=== PATIENT | female | born 1965 | race Caucasian/White ===

== ENCOUNTER 2020-02-23 20:44 | Inpatient (IN) | payer MEDICAID, OTHER ==
[~2020-02-23] VITALS: Ht 160 cm; Wt 52.9 kg
[2020-02-23] MEDS ORDERED: NITROGLYCERIN 2% OINT 1GM PKG TD ONE ×2 (20:54→21:00)
[2020-02-23] MEDS ORDERED: ATORVASTATIN 20 MG TAB ONE (20:54)
[2020-02-23] MEDS ORDERED: HEPARIN SODIUM (PORCINE) 5000 UNITS/ML 1ML VIAL ONE ×2 (20:55→21:18)
[2020-02-23] MEDS ORDERED: ONDANSETRON HCL 4 MG/2 ML VIAL ONE (20:55)
[2020-02-23] MEDS ORDERED: HEPARIN DRIP/D5W 100UNITS/ML 250 ML IV ONE (20:55)
[2020-02-23] MEDS ORDERED: MORPHINE SULF INJ 2 MG/ML SYRINGE 1ML ONE (20:55)
[2020-02-23] MEDS ORDERED: HEPARIN SODIUM (PORCINE) 5000 UNITS/ML 1ML VIAL IV ONE (21:00)
[2020-02-23] MEDS ORDERED: ATORVASTATIN 20 MG TAB PO ONE (21:00)
[2020-02-23] MEDS ORDERED: ONDANSETRON HCL 4 MG/2 ML VIAL IV ONE (21:00)
[2020-02-23] MEDS ORDERED: HEPARIN DRIP/D5W 100UNITS/ML 250 ML IV SCH ×2 (21:00→21:15)
[2020-02-23] MEDS ORDERED: MORPHINE SULFATE 4 MG/ML SYR/VIAL IV ONE (21:00)
[2020-02-23] MEDS ORDERED: METOPROLOL TARTRATE 25 MG TAB ONE (21:03)
[2020-02-23] MEDS ORDERED: MORPHINE SULF INJ 2 MG/ML SYRINGE 1ML IV ONE ×2 (21:15→21:45)
[2020-02-23] MEDS ORDERED: ANGIOMAX 250 MG VIAL IV ONE (21:16)
[2020-02-23] MEDS ORDERED: SODIUM CHL 0.9% 50 ML ONE (21:17)
[2020-02-23] MEDS ORDERED: MIDAZOLAM HCL 1MG/1ML-2 ML VIAL ONE (21:17)
[2020-02-23] MEDS ORDERED: LIDOCAINE 2%HCL (LOCAL ANESTH.) INJ 20ML MDV ONE (21:17)
[2020-02-23] MEDS ORDERED: fentaNYL CITRATE 100 MCG/2 ML VL ONE (21:17)
[2020-02-23] MEDS ORDERED: IOHEXOL 350 MG/ML 100ML IJ ONE (21:17)
[2020-02-23] MEDS ORDERED: VERAPAMIL 2.5MG/ML INJ 2ML VIAL IV ONE (21:18)
[2020-02-23] MEDS ORDERED: CLOPIDOGREL BISULFATE 75 MG TAB ONE (21:27)
[2020-02-23] MEDS ORDERED: CLOPIDOGREL 300 MG TAB ONE (21:28)
[2020-02-23] MEDS ORDERED: CLOPIDOGREL BISULFATE 75 MG TAB PO ONE ×2 (21:30)
[2020-02-23 21:44] LABS: Basophils # (auto) 0 10 ^3/uL (0-0.2); Basophils % (auto) 0.6 % (0.0-2.0); Eosinophils # (auto) 0.3 10 ^3/uL (0-0.8); Eosinophils % (auto) 3.8 % (0.0-7.0); Hematocrit 46.4 % (36.0-46.0); Hemoglobin 15.7 g/dL (12.2-16.2); Lymphocytes # (auto) 2.7 10 ^3/uL (0.4-5.4); Lymphocytes % (auto) 37.2 % (10.0-50.0); Mean Corpuscular Hemoglobin 31.3 pg (28.0-32.0); Mean Corpuscular Hgb Conc. 33.8 g/dL (32.0-36.0); Mean Corpuscular Volume 92.7 fL (80.0-100.0); Monocytes # (auto) 0.8 10 ^3/uL (0-1.3); Monocytes % (auto) 11.4 % (0.0-12.0); Neutrophils # (auto) 3.4 10 ^3/uL (1.6-8.6); Nucleated Red Blood Cells % 0.2 %; Platelet Count (auto) 214 10^3/uL (140-450); Red Blood Cells 5.01 10^6/uL (4.0-5.20); White Blood Cell 7.2 10^3/uL (4.4-10.8)
[2020-02-23 21:55] LABS: Potassium 4.3 mmol/L (3.5-5.1)
[2020-02-23] MEDS ORDERED: diphenhdrAMINE HCL 50 MG/1 ML VL ONE (21:56)
[2020-02-23] MEDS ORDERED: ATROPINE SULF 1 MG/10ml SYR ONE (22:01)
[2020-02-23] MEDS ORDERED: EPINEPHrine HCL 1 MG/10 ML SYRG ONE (22:02)
[2020-02-23 22:06] LABS: Albumin 3.6 g/dL (3.4-5.0); BUN/Creatinine Ratio 21.3; Bilirubin, Total 0.5 mg/dL (0.2-1.0); Calcium 8.9 mg/dL (8.5-10.1); Total Protein 7.3 g/dL (6.4-8.2)
[2020-02-23 22:11] LABS: Partial Thromboplastin Time < 20.0 sec (23.0-31.2)
--- NOTE | 2020-02-23 22:40 | NUR ---
PT. TRANSFERRED FROM DOCTOR ASSISTANT TO ICU BED#106; PT. S/P RT. HEART CATH WITH INSERTION SITE TO RT. GROIN-SLIGHTLY EDEMATOUS WITH NO OOZING OR BRUISING AND WILL CONT. TO MONITOR; PT. C/O CHEST PAIN AND WILL MEDICATE.
[2020-02-23] MEDS ORDERED: NITROGLYCERIN 0.4 MG SL TAB SL PRN (22:45)
[2020-02-23] MEDS ORDERED: ONDANSETRON HCL 4 MG/2 ML VIAL IV PRN (22:45)
[2020-02-23] MEDS ORDERED: MORPHINE SULF INJ 2 MG/ML SYRINGE 1ML IV PRN (22:45)
[2020-02-23] MEDS ORDERED: ACETAMINOPHEN 325 MG TAB PO PRN ×2 (22:45→23:15)
[2020-02-23] MEDS ORDERED: SODIUM CHLORIDE 0.9% 1,000 ML IV SCH (22:45)
[2020-02-23] MEDS ORDERED: MORPHINE SULFATE 4 MG/ML SYR/VIAL IV PRN (22:45)
--- NOTE | 2020-02-23 22:50 | NUR ---
PT TRANSPORTED TO ICU VIA BED. PORTABLE MONITOR AND O2 WITHOUT INCIDENT. PRIMARY RN AT BEDSIDE. PLACED ON BEDSIDE MONITOR AND O2. DRSG TO RT WRIST AND RT FEMORAL AREA CHECKED. DRSGS REMAIN CDI. NO OOZING NO HEMATOMA.DENIES CHESP PAIN/DISCMFORT AT THIS TIME. PULSES REMAIN SAME. TRASNFER SERVICES TO PRIMARY RN JAZMIN.
[2020-02-23 23:00] VITALS: BP_SYST 184; BP_SYST 201; BP_DIAS 118; BP_DIAS 124
[2020-02-23] MEDS ORDERED: LORazepam 0.5 MG TAB PO PRN (23:00)
[2020-02-23] MEDS ORDERED: ACETAMINOPHEN 500 MG TAB PO PRN (23:00)
[2020-02-23] MEDS ORDERED: HYDROcodone-ACET 5/325MG TAB PO PRN (23:00)
[2020-02-23] MEDS ORDERED: hydrALAZINE HCL 20 MG/ML VL ONE (23:04)
[2020-02-23] MEDS ORDERED: CARV3.1240 PO (23:06)
[2020-02-23] MEDS ORDERED: NITR1SPR TL (23:06)
[2020-02-23] MEDS ORDERED: ASPI-231 PO (23:06)
[2020-02-23] MEDS ORDERED: ATOR20TA PO (23:06)
[2020-02-23] MEDS ORDERED: ENAL2.5T11 PO (23:06)
[2020-02-23] MEDS ORDERED: NITROGLYCERIN 0.4MG/DOSE SPRAY 4.9GM TL SCH (23:15)
[2020-02-24] VITALS (29 sets, daily range): BP systolic 92–147; BP diastolic 67–173
[2020-02-24] MEDS ORDERED: MORPHINE SULF INJ 2 MG/ML SYRINGE 1ML IV ONE (01:00)
[2020-02-24] MEDS ORDERED: hydrALAZINE HCL 20 MG/ML VL IV ONE (02:00)
[2020-02-24] MEDS ORDERED: METOPROLOL TARTRATE 1MG/1ML-5ML VIAL IV ONE (02:00)
[2020-02-24] MEDS: MORPHINE SULFATE 4 MG/ML SYR/VIAL IV PRN ×4 (02:38→20:25)
[2020-02-24] MEDS: MORPHINE SULF INJ 2 MG/ML SYRINGE 1ML IV PRN (04:24)
[2020-02-24 04:57] LABS: Basophils # (auto) 0 10 ^3/uL (0-0.2); Basophils % (auto) 0.4 % (0.0-2.0); Eosinophils # (auto) 0 10 ^3/uL (0-0.8); Eosinophils % (auto) 0.2 % (0.0-7.0); Hematocrit 42.3 % (36.0-46.0); Hemoglobin 14.2 g/dL (12.2-16.2); Lymphocytes # (auto) 1.2 10 ^3/uL (0.4-5.4); Lymphocytes % (auto) 16.7 % (10.0-50.0); Mean Corpuscular Hgb Conc. 33.6 g/dL (32.0-36.0); Mean Corpuscular Volume 92.1 fL (80.0-100.0); Monocytes # (auto) 0.6 10 ^3/uL (0-1.3); Monocytes % (auto) 8.3 % (0.0-12.0); Neutrophils # (auto) 5.5 10 ^3/uL (1.6-8.6); Neutrophils % (auto) 74.4 % (37.0-80.0); Nucleated Red Blood Cells % 0.1 %; Platelet Count (auto) 189 10^3/uL (140-450); Red Blood Cells 4.59 10^6/uL (4.0-5.20); White Blood Cell 7.4 10^3/uL (4.4-10.8)
[2020-02-24 05:08] LABS: INR 0.97 (0.9-1.15); Partial Thromboplastin Time 23.3 sec (23.0-31.2)
[2020-02-24 05:11] LABS: Albumin 3.4 g/dL (3.4-5.0); Calcium 8.8 mg/dL (8.5-10.1); Potassium 4.1 mmol/L (3.5-5.1)
[2020-02-24 05:17] LABS: Bilirubin, Total 0.4 mg/dL (0.2-1.0); Total Protein 6.8 g/dL (6.4-8.2)
--- NOTE | 2020-02-24 08:30 | NUR ---
NEW ORDER FOR PLAVIX 75 MG PO QDAILY AWARE NO ORDER THIS AM
--- NOTE | 2020-02-24 09:33 | NUR ---
DR LAU AT BEDSIDE, EXAMINED PATIENT AND NEW ORDER TO DOWNGRADE TO TELE OR SONG BUT TO CHECK WITH CARDIOLOGY PRIOR TO DOWNGRADE
[2020-02-24] MEDS ORDERED: ENALAPRIL MALEATE 2.5 MG TAB PO SCH (10:00)
[2020-02-24] MEDS ORDERED: ATORVASTATIN 20 MG TAB PO SCH (10:00)
[2020-02-24] MEDS: PANTOPRAZOLE 40 MG/10 ML VIAL INJ IV SCH (10:53)
[2020-02-24] MEDS: LISINOPRIL 10 MG TAB PO SCH (10:54)
[2020-02-24] MEDS: CARVEDILOL 3.125 MG TAB PO SCH ×2 (10:54→22:00)
[2020-02-24] MEDS: ASPirin-EC 81 mg tab PO SCH (10:54)
[2020-02-24] MEDS: CLOPIDOGREL BISULFATE 75 MG TAB PO SCH (10:55)
--- NOTE | 2020-02-24 11:34 | NUR ---
SPOKE WITH DR LAU, DR BAKER UA AND AWARE AVNI/ELANA HAS NOT CALLED BACK YET REGARDING DOWNGRADE OK TO DOWNGRADE TO TELE WITHOUT CARDIO CLEARANCE DUE TO CODE ON FLOOR. RN FAXED MED REC REQUEST TO [facility]
[2020-02-24] MEDS: NITROGLYCERIN 0.4 MG SL TAB SL PRN (12:18)
--- NOTE | 2020-02-24 12:20 | NUR ---
OK WITH PRINCESS TO TRANSFER TO ELANA MURCIA INLAYER AWARE HEPARIN GTT STILL ORDERED BUT NOT INFUSING, NEW ORDER TO DC
--- NOTE | 2020-02-24 12:30 | NUR ---
TRANSFERRED PATIENT TO ROOM 291B WITH ALL BELONGINGS AND IN STABLE CONDITION ON TELE MONITOR AND IN BED WITH PORTABLE 02, NTG GIVEN 0.4 MG SL ONCE PRIOR TO TRANSFERRING TO DUE CHEST PAIN C/O 08/04 WITH RELIEF-SEE EMAR. REPORT GIVEN TO KE BOND VIA PHONE BY VALENTÍN STEWARD
--- NOTE | 2020-02-24 12:45 | NUR ---
Received pt. from ICU; This RN did assessment; s1 and s2 noted clear lung sounds and BP 126/89 pulse 66.a Pt. states, " I have chest pain but nitro does not help me. I need morphine and ice chips. This RN let pt. know that morphine isn't due for one hour. This RN will continue to check on pt.
--- NOTE | 2020-02-24 13:50 | NUR ---
This RN gave pt. morphine and pt. immediately states" I am feeling better I think I can sleep now. This RN will continue to monitor pt. Q1 and PRN.
[2020-02-24] MEDS: ATORVASTATIN 20 MG TAB PO SCH (22:00)
[2020-02-25] VITALS (8 sets, daily range): BP systolic 81–153; BP diastolic 46–97
[2020-02-25] MEDS: MORPHINE SULFATE 4 MG/ML SYR/VIAL IV PRN (00:54)
[2020-02-25] MEDS: NITROGLYCERIN 0.4 MG SL TAB SL PRN (00:55)
[2020-02-25 01:50] LABS: Alcohol, Urine < 3.0 mg/dL (0-10); Amphetamine Screen, Urine NEGATIVE (NEGATIVE); Barbiturate Scree,Urine NEGATIVE (NEGATIVE); Benzodiazephine Screen, Urine POSITIVE (NEGATIVE); Cannabinoid Screen, Urine POSITIVE (NEGATIVE); Cocaine Screen, Urine NEGATIVE (NEGATIVE); Opiate Scree,Urine POSITIVE (NEGATIVE); Phencyclidine Screen, Urine NEGATIVE (NEGATIVE)
[2020-02-25 01:51] LABS: Urine Bacteria MANY /hpf (None Seen); Urine Blood Negative /uL (Negative); Urine Mucus FEW (None Seen); Urine Specific Gravity 1.024 (1.001-1.035); Urine WBC 135 /hpf (0 - 5)
--- NOTE | 2020-02-25 03:32 | NUR ---
Shift update Received pt in an elevated level of pain pointing at her thorax while giving a description. Due medication for pain administered. SBP noted lower than 100, beta abbi held. Able to collect pending u/a specimen & get processed.
[2020-02-25] MEDS: MORPHINE SULF INJ 2 MG/ML SYRINGE 1ML IV PRN ×2 (05:24→07:21)
--- NOTE | 2020-02-25 05:48 | NUR ---
Chest pain Patient c/o of 10/10 chest pain. EKG done, showed similar rhythms with previous readings. Spoke to hospitalist RAQUEL Dove ordered to monitor. Patient only want morphine iv and she expresses feeling relief from the pain right away. Patient asks for it every 4 hours on the clock and complains of 10/10 chest pain. Refuses nitroglycerin saying it doesn't relieve her pain. Explained to patient about dependency on narcotic and the way of dealing with pain when she goes home.
--- NOTE | 2020-02-25 07:40 | NUR ---
Opening Shift Note Assumed care of patient, awake and alert. No S/S of distress/SOB. However, pt reports pain 10/10. Pt. states, "Night nurse said I should go to ER." "I do not feel good" This RN will address pt's pain as prescribed by MD. Also, Instructed pt. to call for assistance as needed. Bed locked in lowest position, side rails up x2, call light within reach. Safety precautions in place. Will continue to monitor for changes Q1hr and PRN.
[2020-02-25] MEDS ORDERED: CEFTRIAXONE SODIUM 2 GM in D5W 5% 50 ML IV ONE (08:00)
--- NOTE | 2020-02-25 10:18 | NUR ---
PT. HAS EKG DONE DUE TO CHEST PAIN.
--- NOTE | 2020-02-25 10:19 | NUR ---
EKG Obtained 12lead EKG for chest pain. RONDA Elkins at bedside. Addendum: 02/25/20 at 1304 by GREG DENISE RN RN Rash on abdominal/chest area noted.
--- NOTE | 2020-02-25 10:22 | NUR ---
DR. LAU REVIEWED THE EKG.
--- NOTE | 2020-02-25 10:42 | NUR ---
notified Notified Dr. Cobian of patient status and request to be seen by Dr. Fernando. MD will see patient.
[2020-02-25] MEDS ORDERED: diphenhdrAMINE-ZINC ACETATE 1 APPLIC APPL TOP PRN (10:45)
[2020-02-25] MEDS ORDERED: ALPRAZolam 0.25 MG TAB PO ONE (10:45)
[2020-02-25] MEDS: ASPirin-EC 81 mg tab PO SCH (10:51)
[2020-02-25] MEDS: PANTOPRAZOLE 40 MG/10 ML VIAL INJ IV SCH (10:51)
[2020-02-25] MEDS: LISINOPRIL 10 MG TAB PO SCH (10:52)
[2020-02-25] MEDS: CARVEDILOL 3.125 MG TAB PO SCH ×2 (10:52→22:00)
[2020-02-25] MEDS: CLOPIDOGREL BISULFATE 75 MG TAB PO SCH (10:54)
--- NOTE | 2020-02-25 11:39 | NUR ---
Notified Dr. Fernando notified of EKG and physical assessment findings as well as patient complaint of anxiety. New orders received for Xanax 0.25mg for anxiety x1 and Benadryl oinment for rash. RONDA, Brittni, aware. Addendum: 02/25/20 at 1310 by GREG DENISE RN RN WRONG TIME: [id number]
--- NOTE | 2020-02-25 12:25 | NUR ---
at Bedside Dr. Cobian assessing patient at bedside. New orders received for Toradol 30mg IV pushx1 and obtain Echo. RNBrittni, notified and aware.
--- NOTE | 2020-02-25 12:27 | NUR ---
Notified Dr. Fernando aware of patient status and Dr. Mango carmona. RN, Brittni, notified and aware.
[2020-02-25] MEDS ORDERED: COLCHICINE 0.6 MG CAP PO ONE (13:00)
--- NOTE | 2020-02-25 13:04 | NUR ---
Lab Called lab, per home performance laborer, will send video production intern to obtain stat Troponin per Dr. Fernando orders.
--- NOTE | 2020-02-25 15:20 | NUR ---
THIS RN PAGED DR. LAU FOR CRITICAL TROPONIN OF 32.600. THIS RN WAITING TO HEAR BACK.
--- NOTE | 2020-02-25 16:00 | NUR ---
THIS RN CONTACTED DR. TREVINO AND DR. LAU WITH RESPECT TO THE PT. TROPONIN LEVEL 32.600. ORDERS ARE TO START A HEPARIN DRIP.
[2020-02-25] MEDS ORDERED: HEPARIN SODIUM (PORCINE) 5000 UNITS/ML 1ML VIAL IV ONE (16:15)
[2020-02-25] MEDS ORDERED: HEPARIN DRIP/D5W 100UNITS/ML 250 ML IV SCH (16:15)
--- NOTE | 2020-02-25 17:00 | NUR ---
LAB IN PT ROOM FOR PT/PTT DRAW BUT COULD NOT ACCESS VEIN. TURN SUPERVISOR STATED SHE WOULD CALL ANOTHER TECH. WILL FOLLOW UP.
--- NOTE | 2020-02-25 18:00 | NUR ---
FOLLOWED UP AGAIN WITH LAB FOR PT/PTT LAB DRAW. THEY STATED THEY WOULD SEND SOMEONE UP FROM ER.
[2020-02-25] MEDS ORDERED: KETOROLAC TROMETH 30 MG/ML 1ML VIAL IV ONE (19:00)
--- NOTE | 2020-02-25 19:22 | NUR ---
CALLED LAB SPOKE TO WILLI WHO KNEW ABOUT THE SITUATION, HOWEVER; SHE STATES "SHE IS SWAMPED RIGHT NOW" AND WILL COME UP SOON SHE CAN.
[2020-02-25] MEDS ORDERED: cefTRIAXone 1GM/50ML D5W 50 ML IV ONE ×2 (19:29→19:48)
--- NOTE | 2020-02-25 19:30 | NUR ---
Post endorsement to NOC Received pt on bed, pending blood draw for PTT check as to establish baseline for Heparin drip rate. Per report pt is hardstick and some issued going on with phlebo schedule.
--- NOTE | 2020-02-25 21:30 | NUR ---
Spoke with lab personnel, stated they will be sending someone to draw labs for pt
--- NOTE | 2020-02-25 21:45 | NUR ---
Heparin prepared at bedside. Noted BP low. Paged hospitalist
[2020-02-25] MEDS: ATORVASTATIN 20 MG TAB PO SCH (22:00)
--- NOTE | 2020-02-25 22:00 | NUR ---
Spoke to hospitalist on duty, reported series of low systolic pressure. Advised to follow hospital protocol. Beef Boner aware.
--- NOTE | 2020-02-25 22:45 | NUR ---
Noted blood has been drawn. Awaiting PTT result to get Heparin started
[2020-02-25 22:57] LABS: Basophils # (auto) 0.1 10 ^3/uL (0-0.2); Basophils % (auto) 0.9 % (0.0-2.0); Eosinophils # (auto) 0 10 ^3/uL (0-0.8); Eosinophils % (auto) 0.4 % (0.0-7.0); Hematocrit 39.7 % (36.0-46.0); Hemoglobin 13.4 g/dL (12.2-16.2); Lymphocytes # (auto) 1.6 10 ^3/uL (0.4-5.4); Lymphocytes % (auto) 18.4 % (10.0-50.0); Mean Corpuscular Hemoglobin 31.1 pg (28.0-32.0); Mean Corpuscular Hgb Conc. 33.9 g/dL (32.0-36.0); Mean Corpuscular Volume 91.8 fL (80.0-100.0); Monocytes # (auto) 1.3 10 ^3/uL (0-1.3); Monocytes % (auto) 14.3 % (0.0-12.0); Neutrophils # (auto) 5.8 10 ^3/uL (1.6-8.6); Platelet Count (auto) 172 10^3/uL (140-450); Red Blood Cells 4.32 10^6/uL (4.0-5.20); Red Cell Distribution Width 13.2 % (11.8-14.3); White Blood Cell 8.8 10^3/uL (4.4-10.8)
--- NOTE | 2020-02-25 23:00 | NUR ---
Dr Fernando called and stated that heparin gtt hasn't been started and needs to be started. Labs were drawn at [address] and waiting for results. Dr[address] Fernando informed. Stated when results come back and ok, just start drip and do not give bolus.
[2020-02-25 23:12] LABS: INR 1.01 (0.9-1.15); Partial Thromboplastin Time 26.2 sec (23.0-31.2)
[2020-02-26] VITALS (10 sets, daily range): BP systolic 73–105; BP diastolic 45–64
--- NOTE | 2020-02-26 00:05 | NUR ---
Primary RN stated that BP is low. Systolic in the 70's. Gave 250 NS bolus. Stephen TAYLOR aware.
--- NOTE | 2020-02-26 00:25 | NUR ---
Heparin gtt started by primary RN
--- NOTE | 2020-02-26 00:36 | NUR ---
Called Stephen TAYLOR regarding low BP and no IV fluids currently. Order received for NS @ 60 ml/hr
--- NOTE | 2020-02-26 00:40 | NUR ---
Patient running on 300 u/hr of Heparin (58727 units/250 mL) per pharmacy protocol. Next PTT draw scheduled at 0440 along with trops check. Fluids of ns ant 60 ml/hr per hospitalist order. Comfortable on bed, denied chest pain at this time. On BP monitoring. Bed salvador offered frequently when awake. Alert and oriented, requested snack, provided. On 02 at 2 LPM for comfort. Bilateral lower extremities elevated. Frequent visual check in progress.
--- NOTE | 2020-02-26 02:03 | NUR ---
Patient on bedpan, and 02 with no s/sx of shortness of breath. Consistently saturating at high 90s and would go to 100's. Repositioned as necessary and per comfort.
--- NOTE | 2020-02-26 04:20 | NUR ---
Deviated jaw Noted patient as she was talking that chin sways to the left slightly of her face. Assessed b/l arms noted left hand has weaker mass spectrometry manager than the other. Notified Charge and Industrial Gas Servicer Helper came to the room. BS 104 mg/dL, EKG still showing acute TX just like the previous. 250 mL ns bolus given. Cont observing pt.
--- NOTE | 2020-02-26 04:25 | NUR ---
Charge nurse and myself evaluated patient and determined that there was no deviation and bilateral hand and arm reflexes and strength were equal. Patient's BP remains in the 80's systolic and patient is A&O x 4, asymtomatic with zero pain. Patient currently on Heparin gtt per protocol and NS@60 ml/hr. Nurse instructed to monitor patient and inform charge nurse if any further concerns.
--- NOTE | 2020-02-26 05:09 | NUR ---
Patient remains alert and oriented, saturating 100% on 2liters
[2020-02-26 06:24] LABS: Basophils # (auto) 0 10 ^3/uL (0-0.2); Basophils % (auto) 0.5 % (0.0-2.0); Eosinophils # (auto) 0 10 ^3/uL (0-0.8); Eosinophils % (auto) 0.7 % (0.0-7.0); Hematocrit 39.6 % (36.0-46.0); Hemoglobin 13.2 g/dL (12.2-16.2); Lymphocytes # (auto) 1.2 10 ^3/uL (0.4-5.4); Mean Corpuscular Hemoglobin 30.7 pg (28.0-32.0); Mean Corpuscular Hgb Conc. 33.3 g/dL (32.0-36.0); Mean Corpuscular Volume 92.2 fL (80.0-100.0); Monocytes # (auto) 1.1 10 ^3/uL (0-1.3); Monocytes % (auto) 14.7 % (0.0-12.0); Neutrophils # (auto) 4.8 10 ^3/uL (1.6-8.6); Neutrophils % (auto) 67.1 % (37.0-80.0); Platelet Count (auto) 138 10^3/uL (140-450); Red Cell Distribution Width 13.2 % (11.8-14.3); White Blood Cell 7.2 10^3/uL (4.4-10.8)
[2020-02-26 06:39] LABS: INR 1.02 (0.9-1.15); Partial Thromboplastin Time 27.1 sec (23.0-31.2)
[2020-02-26 06:41] LABS: Calcium 8.4 mg/dL (8.5-10.1); Potassium 3.7 mmol/L (3.5-5.1)
[2020-02-26 06:46] LABS: BUN/Creatinine Ratio 19.4
--- NOTE | 2020-02-26 07:34 | NUR ---
Opening Shift Note Assumed care of patient, awake and alert. No S/S of distress/SOB or pain. Instructed on POC and to call for assist PRN, will continue to monitor for changes Q1hr and PRN.
--- NOTE | 2020-02-26 07:35 | NUR ---
NIGHT NURSE GAVE ME REPORT AND TOGETHER WE WENT TO CHECK PT. AND PT'S HEPARIN DRIP. PT. WAS STARTED AT 3ML WHICH WAS A MEDICATION ERROR BASED ON HEPARIN PROTOCOL AND SCALE. PT. APTT 27.1 CALLED FOR A BOLUS AND INCREASE OF 3 ML WHICH IS WHY WE DISCOVERED THE MEDICATION ERROR. WILL CALL CHARGE NURSE TO ADVISE.
--- NOTE | 2020-02-26 07:36 | NUR ---
SPOKE TO CHARGE NURSE JOAQUÍN REGARDING HEPARIN DRIP MEDICATION ERROR. CHARGE NURSE TOLD ME TO CALL PHARMACY AND FILL OUT A INCIDENT REPORT ON THE NIGHT TIME NURSE.
--- NOTE | 2020-02-26 07:37 | NUR ---
THIS RN SPOKE TO ANITRA (PHARMACIST) REGARDING THE HEPARIN DRIP MEDICATION ISSUE. ANITRA SAID TO INCREASE THE ML'S TO A TOTAL OF 6 ML AND SHE WOULD HAVE THE LAB REDRAW THE PT'S APTT IN SIX HOURS FROM NOW.
[2020-02-26] MEDS: SODIUM CHLORIDE 0.9% 1,000 ML IV SCH (08:00)
--- NOTE | 2020-02-26 08:03 | NUR ---
Care endorsed to RONDA Elkins. Latest BP 93/64 mmHg. Patient alert and oriented 100 saturation, awaiting breakfast.
--- NOTE | 2020-02-26 08:25 | NUR ---
THIS RN COMMUNICATED WITH DR. TREVINO ABOUT THE HEPARIN DRIP MEDICATION ERROR AND BLOOD PRESSURE OF 77/57, AND IN PAIN 4 OUT OF 10, THIS PT. IS ASYMPTOMATIC. DR. TREVINO PRESCRIBED TORADOL 30 IV Q6 PRN.
[2020-02-26] MEDS: CLOPIDOGREL BISULFATE 75 MG TAB PO SCH (09:10)
[2020-02-26] MEDS: COLCHICINE 0.6 MG CAP PO SCH (09:10)
[2020-02-26] MEDS: ASPirin-EC 81 mg tab PO SCH (09:10)
[2020-02-26] MEDS: cefTRIAXone 1GM/50ML D5W 50 ML IV SCH (09:10)
[2020-02-26] MEDS: PANTOPRAZOLE 40 MG/10 ML VIAL INJ IV SCH (09:10)
[2020-02-26] MEDS: KETOROLAC TROMETH 30 MG/ML 1ML VIAL IV PRN ×2 (09:16→23:07)
[2020-02-26] MEDS: LISINOPRIL 10 MG TAB PO SCH (10:00)
[2020-02-26] MEDS: CARVEDILOL 3.125 MG TAB PO SCH ×2 (10:00→22:00)
--- NOTE | 2020-02-26 13:56 | NUR ---
THIS RN JUST CALLED LAB ABOUT DRAWING PT'S APTT LEVEL DUE TO HEPARIN DRIP RUNNING.
[2020-02-26 14:26] LABS: INR 1.02 (0.9-1.15); Partial Thromboplastin Time 35.6 sec (23.0-31.2)
--- NOTE | 2020-02-26 19:35 | NUR ---
Opening Shift Note Assumed care of patient, awake and alert X 4. No S/S of distress/SOB or pain. IV to right jugular and left hand intact and patent. Tele box matches pt all leads are in place. Bed lowered and locked side rails up x 2. Call light and bedside table are within reach. Instructed on POC and to call for assist PRN, will continue to monitor for changes Q1hr and PRN.
--- NOTE | 2020-02-26 21:12 | NUR ---
paging hospitalist Calling in regards to low blood pressure of 77/45; HR 93, RR 16, O2 SAT 100%
[2020-02-26 21:29] LABS: INR 1.03 (0.9-1.15); Partial Thromboplastin Time 44.2 sec (23.0-31.2)
--- NOTE | 2020-02-26 21:43 | NUR ---
Hospitalist returned page Received order for 500 NS 0.9% bolus and if patient does not respond transfer to SONG
[2020-02-26] MEDS ORDERED: SODIUM CHLORIDE 0.9% 500 ML IV ONE (22:00)
[2020-02-26] MEDS: ATORVASTATIN 20 MG TAB PO SCH (23:06)
--- NOTE | 2020-02-26 23:15 | NUR ---
Received APTT results 44.2 At start of shift heparin drip rate was 8mls/hr, per protocol increased rate by 2 mls for total of 10 mls/hr
--- NOTE | 2020-02-27 00:26 | NUR ---
did order for aptt to done at 0243 which is 6 hrs after last aptt for heparin drip
[2020-02-27] MEDS: SODIUM CHLORIDE 0.9% 1,000 ML IV SCH ×2 (00:40)
[2020-02-27 05:00] VITALS: BP 108/74
--- NOTE | 2020-02-27 05:00 | NUR ---
Patient has question about Left heart cath consents unsigned
[2020-02-27 05:07] LABS: INR 1.02 (0.9-1.15); Partial Thromboplastin Time 39.6 sec (23.0-31.2)
--- NOTE | 2020-02-27 05:26 | NUR ---
Paged Dr. Cobian to confirm heparin drip continuation or hold
--- NOTE | 2020-02-27 05:30 | NUR ---
Received APTT results 39.6 followed protocol
--- NOTE | 2020-02-27 06:00 | NUR ---
Dr Cobian advised stop heparin drip
--- NOTE | 2020-02-27 07:30 | NUR ---
Opening Shift Note Assumed care of patient, awake and alert. No S/S of distress/SOB. Patient c/o pain 5/10, followed pain medication ordered. Instructed on POC and to call for assist PRN, will continue to monitor for changes Q1hr and PRN. Bed is locked and in lowest position. Call light within reach.
[2020-02-27] MEDS: cefTRIAXone 1GM/50ML D5W 50 ML IV SCH (08:31)
[2020-02-27] MEDS: KETOROLAC TROMETH 30 MG/ML 1ML VIAL IV PRN ×2 (08:31→23:11)
[2020-02-27 08:53] LABS: INR 0.99 (0.9-1.15); Partial Thromboplastin Time 25.2 sec (23.0-31.2)
[2020-02-27 09:00] VITALS: BP 109/81
[2020-02-27] MEDS: LISINOPRIL 10 MG TAB PO SCH (10:00)
[2020-02-27] MEDS: COLCHICINE 0.6 MG CAP PO SCH (10:00)
[2020-02-27] MEDS: CARVEDILOL 3.125 MG TAB PO SCH ×2 (10:00→22:00)
[2020-02-27] MEDS: PANTOPRAZOLE 40 MG/10 ML VIAL INJ IV SCH (10:16)
[2020-02-27] MEDS: CLOPIDOGREL BISULFATE 75 MG TAB PO SCH (10:16)
[2020-02-27] MEDS: ASPirin-EC 81 mg tab PO SCH (10:17)
--- NOTE | 2020-02-27 10:18 | NUR ---
MEDICATIONS HELD PATIENT LISINOPRIL 10 MG AND CARVEDILOL 3.125 MG HELD DUE TO DECREASED BLOOD PRESSURE. PATIENT WAS GIVEN 500 ML BOLUS FOR DECREASED BLOOD PRESSURE ON 02/26/20. DR. LAU NOTIFIED OF MEDICATION HELD. WILL CONTINUE TO MONITOR PATIENT. PATIENT REFUSED COLCHICINE 0.6 MG DUE TO PATIENT NOT HAVING HISTORY OF GOUT. WILL NOTIFY MD OF MEDICATION REFUSAL.
--- NOTE | 2020-02-27 11:51 | NUR ---
assessment Patient is a 54 year old female who is alert and oriented. Patients cognitive abilities are intact. Prior to admission patient lived home with sig other of 28 years and functioned independently. Patient informed me she is able to care for her own ADLs. Per patient she will return home to her prior living arrangements post discharge and family will transport her home. Patient has no need for DME. Patient informed me she was having chest pain and called 911. I informed patient I will continue to monitor and follow up as appropriate for any post discharge needs. Patients PCP is Dr Corley. Patient has no safety issues regarding returning home on discharge. I informed patient she has a right to speak to a oncology social work regarding all care. I informed patient she has a right to participate in any and all discharge planning. Patient does not have a POA and advanced directive. I have offered patient information on POA and advanced directives. I informed the patient the advantages and benefits of having an Advanced Directive. Patient verbalized understanding and agreed to discharge plan. Addendum: 02/27/20 at 1154 by Sybil ENCARNACION Amended: Links added.
--- NOTE | 2020-02-27 12:40 | NUR ---
PATIENT TRANSPORTED VIA GURNEY TO FASHION COORDINATOR PROCEDURE WITH DR. TREVINO. WILL AWAIT PATIENT RETURN.
[2020-02-27 12:49] VITALS: BP 113/78
[2020-02-27] MEDS ORDERED: ANGIOMAX 250 MG VIAL IV ONE (13:10)
[2020-02-27] MEDS ORDERED: MIDAZOLAM HCL 1MG/1ML-2 ML VIAL ONE (13:10)
[2020-02-27] MEDS ORDERED: fentaNYL CITRATE 100 MCG/2 ML VL ONE (13:10)
[2020-02-27] MEDS ORDERED: LIDOCAINE 2%HCL (LOCAL ANESTH.) INJ 20ML MDV ONE (13:10)
[2020-02-27] MEDS ORDERED: SODIUM CHL 0.9% 50 ML ONE (13:10)
[2020-02-27] MEDS ORDERED: IOHEXOL 350 MG/ML 100ML IJ ONE ×2 (13:27→13:51)
--- NOTE | 2020-02-27 13:53 | NUR ---
Nutrition Assessment Notes Please refer to link for full assessment notes. Est Energy needs: 7237-9443 kcals (25-30 kcal/kgBW) Est Protein needs: 42-53 gms/day (0.8-1.0 gm/kgBW) Will continue to monitor and reassess prn. Addendum: 02/27/20 at [address] Amended: Links added.
--- NOTE | 2020-02-27 14:11 | NUR ---
Patient brought to recovery via bed, report received from RONDA Sprague and RONDA Hogan. Patient is AO x 4, NAD noted. Left groin site is benign, no s/s of bleeding or hematoma formation. Positive circulation, movement and sensation noted to BLE. Patient verbalized understanding to post-procedure care and flat time.
--- NOTE | 2020-02-27 14:25 | NUR ---
Report given to RONDA Waldron.
--- NOTE | 2020-02-27 14:26 | NUR ---
Patient is awake in bed. Denies pain at this time. NAD noted. Left groin site remains unchanged. VS WNL of baseline.
--- NOTE | 2020-02-27 14:27 | NUR ---
REPORT RECEIVED REGARDING PATIENT POST CATH PROCEDURE WITH DR. TREVINO. PATIENT HAD NO STENT PLACEMENT DUE TO RCA OCCLUDED AND UNABLE TO INTERVENE. LEFT HEART CATH ACCESS THROUGH GROIN. PATIENT IS ALERT AND ORIENTED, VS BP 114/80, R 13, HR 85, SPO2 100% AT 2L NC. WILL AWAIT PATIENT RETURN. PATIENT WILL BE ABLE TO SIT UP AT 1610. WILL CONTINUE TO MONITOR PATIENT.
--- NOTE | 2020-02-27 14:38 | NUR ---
Patient taken to to telemetry unit via bed, cardiac nurse specialist in place. No s/s of distress noted upon departure. VSS. Primary RNKeri present at bedside to witness left groin site benign, no s/s of bleeding or hematoma formation. Bed set in lowest locked position with side rails up x 2, call light is within reach and bed alarm set on for safety. Care endorsed to RONDA Saavedra.
--- NOTE | 2020-02-27 16:21 | NUR ---
PATIENT SAT UP IN BED WITH NO SIGNS OF MAJOR BLEEDING TO LEFT GROIN. POST WATER AND FIRE TECHNICIAN ORDERS FOLLOWED. PATIENT WILL BE CONTINUED TO BE MONITORED.
[2020-02-27 16:59] VITALS: BP 117/78
[2020-02-27 22:09] VITALS: BP 99/66
[2020-02-27] MEDS: ATORVASTATIN 20 MG TAB PO SCH (22:48)
[2020-02-28 05:00] VITALS: BP 109/69
[2020-02-28 09:00] VITALS: BP 108/69
[2020-02-28] MEDS: CARVEDILOL 3.125 MG TAB PO SCH (10:52)
[2020-02-28] MEDS: cefTRIAXone 1GM/50ML D5W 50 ML IV SCH (10:52)
[2020-02-28] MEDS: SODIUM CHLORIDE 0.9% 1,000 ML IV SCH (10:52)
[2020-02-28] MEDS: PANTOPRAZOLE 40 MG/10 ML VIAL INJ IV SCH (10:53)
[2020-02-28] MEDS: CLOPIDOGREL BISULFATE 75 MG TAB PO SCH (10:53)
[2020-02-28] MEDS: COLCHICINE 0.6 MG CAP PO SCH (10:53)
[2020-02-28] MEDS: LISINOPRIL 10 MG TAB PO SCH (10:53)
[2020-02-28] MEDS: ASPirin-EC 81 mg tab PO SCH (10:53)
[2020-02-28] MEDS ORDERED: CLOP75TA28 PO (12:22)
[2020-02-28] MEDS ORDERED: COLC0.6T56 PO (12:22)
[2020-02-28] MEDS ORDERED: ASPI-231 PO (12:22)
[2020-02-28] MEDS ORDERED: ENAL2.5T11 PO (12:22)
[2020-02-28] MEDS ORDERED: CARV3.1240 PO (12:22)
[2020-02-28 13:00] VITALS: BP 108/79
[2020-02-28] MEDS: KETOROLAC TROMETH 30 MG/ML 1ML VIAL IV PRN (15:16)
--- NOTE | 2020-02-28 17:04 | NUR ---
Discharge instructions given as ordered to patient . The discharge forms included education on fall prevention , on discharge diagnosis, cardiac diet, cardiac rehab and every test and procedure patient had during stay. Encourage patient to follow up with Dr.Molly Colmenares on 03/09/20 appointment scheduled for patient. Patient needs to follow up with in order to get a referral to the environmental air specialist Dr.George Covington. Patient's insurance needs referral to environmental air specialist in order to cover visit.Patient verbalized understanding. All questions and concerns addressed. Patient verbalized understanding of all discharge instructions. Medication reconciliation form completed and copy given to patient. Prescriptions has been called to [facility] pharmacy , patient picked up her medications at the [id number] pharmacy when leaving. IV removed with catheter intact, pressure dressing applied. Telemetry unit returned to ICU. Patient taken to vehicle via wheelchair with all personal belongings, accompanied by staff and family member. No distress noted at time of departure.
== END 2020-02-28 18:05 | disposition home or self-care (01) | DRG 174 ==
LOC: EDBD 20:44 → ER 20:44 → ICU WEST 20:45 → TELE-WESTW 02-24 12:45
PROVIDERS: ADMIT Nurse Practitioner Family; ATTEND Internal Medicine
PROC: B2111ZZ Fluoroscopy of Multiple Coronary Arteries using Low Osmolar Contrast (ICD-10-PCS; principal; 2020-02-23)
PROC: 4A023N7 Measurement of Cardiac Sampling and Pressure, Left Heart, Percutaneous Approach (ICD-10-PCS; 2020-02-23)
PROC: B2151ZZ Fluoroscopy of Left Heart using Low Osmolar Contrast (ICD-10-PCS; 2020-02-23)
PROC: 02703EZ Dilation of Coronary Artery, One Artery with Two Intraluminal Devices, Percutaneous Approach (ICD-10-PCS; 2020-02-23)
PROC: B2111ZZ Fluoroscopy of Multiple Coronary Arteries using Low Osmolar Contrast (ICD-10-PCS; 2020-02-27)
DX: I21.19 ST elevation (STEMI) myocardial infarction involving other coronary artery of inferior wall (principal); I50.22 Chronic systolic (congestive) heart failure; I24.1 Dressler's syndrome; I25.10 Atherosclerotic heart disease of native coronary artery without angina pectoris; F17.210 Nicotine dependence, cigarettes, uncomplicated; F12.90 Cannabis use, unspecified, uncomplicated; I11.0 Hypertensive heart disease with heart failure; I70.0 Atherosclerosis of aorta; Z95.5 Presence of coronary angioplasty implant and graft; Z88.5 Allergy status to narcotic agent; Z79.899 Other long term (current) drug therapy; Z79.82 Long term (current) use of aspirin
CPT/HCPCS: 36415; 71045; 80048; 80053; 80061; 80307; 81001; 82962; 83036; 83735; 83880; 84443; 84484; 85025; 85379; 85610; 85730; 86850; 86900; 86901; 87081; 92950; 93005; 93306; 93458; 96365; 96375; 96376; 99152; 99153; C1874; C1887; C9113; G0378; J0696; J1885; J2250; J2405; J7060

== ENCOUNTER 2020-08-03 08:54 | Day surgery (SDC) | payer MEDICAID ==
[~2020-08-03] VITALS: Ht 152.4 cm; Wt 59.0 kg
[~2020-08-03 08:54] MED LIST: ASPI-231 PO; ATOR20TA50 PO; CARV3.1240 PO; CLOP75TA28 PO; ENAL2.5T11 PO
[2020-08-03] MEDS ORDERED: IOHEXOL 350 MG/ML 100ML IJ ONE (09:10)
[2020-08-03] MEDS ORDERED: LIDOCAINE 2%HCL (LOCAL ANESTH.) INJ 20ML MDV ONE ×2 (09:11→10:23)
[2020-08-03] MEDS ORDERED: IODIXANOL 320MG/ML 100ML BTL IV ONE ×2 (09:51→11:13)
[2020-08-03] MEDS ORDERED: ANGIOMAX 250 MG VIAL IV ONE (09:51)
[2020-08-03] MEDS ORDERED: MIDAZOLAM HCL 1MG/1ML-2 ML VIAL ONE (09:52)
[2020-08-03] MEDS ORDERED: fentaNYL CITRATE 100 MCG/2 ML VL ONE (09:52)
[2020-08-03] MEDS ORDERED: SODIUM CHL 0.9% 50 ML ONE (09:53)
== END 2020-08-03 15:07 | disposition home or self-care (01) ==
LOC: CATH 08:54
PROVIDERS: ATTEND Internal Medicine Cardiovascular Disease
DX: R06.02 Shortness of breath (principal); I25.118 Atherosclerotic heart disease of native coronary artery with other forms of angina pectoris; E78.5 Hyperlipidemia, unspecified; I10 Essential (primary) hypertension; I25.2 Old myocardial infarction; Z79.82 Long term (current) use of aspirin; Z98.890 Other specified postprocedural states; Z79.899 Other long term (current) drug therapy; Z87.891 Personal history of nicotine dependence; Z88.5 Allergy status to narcotic agent; Z20.822 Contact with and (suspected) exposure to COVID-19
CPT/HCPCS: 93460; C1751; C1760; C1769; C1887; C1894; C9600; J0583; J1644; J2250; J3010; J7030; Q9967; U0003; 99152; 99153

== ENCOUNTER 2021-01-21 09:44 | Inpatient (IN) | payer MEDICAID, OTHER ==
[~2021-01-21] VITALS: Ht 152.4 cm; Wt 64.0 kg
[~2021-01-21 09:44] MED LIST changes: -ASPI-231 PO; +ASPI1TAB20 PO
[2021-01-21] MEDS ORDERED: SODIUM CHLORIDE 0.9% 1,000 ML IV ONE (10:00)
[2021-01-21] MEDS ORDERED: MORPHINE SULFATE 4 MG/ML SYR/VIAL IV ONE (10:00)
[2021-01-21] MEDS ORDERED: ONDANSETRON HCL 4 MG/2 ML VIAL IV ONE (10:00)
[2021-01-21 10:19] LABS: Basophils # (auto) 0.1 10 ^3/uL (0-0.2); Basophils % (auto) 1.2 % (0.0-2.0); Eosinophils # (auto) 0.3 10 ^3/uL (0-0.8); Eosinophils % (auto) 4.5 % (0.0-7.0); Hematocrit 40.7 % (36.0-46.0); Hemoglobin 13.4 g/dL (12.2-16.2); Lymphocytes # (auto) 1.4 10 ^3/uL (0.4-5.4); Lymphocytes % (auto) 23.7 % (10.0-50.0); Mean Corpuscular Hemoglobin 30.7 pg (28.0-32.0); Mean Corpuscular Hgb Conc. 32.9 g/dL (32.0-36.0); Mean Corpuscular Volume 93.3 fL (80.0-100.0); Monocytes # (auto) 0.2 10 ^3/uL (0-1.3); Neutrophils # (auto) 3.9 10 ^3/uL (1.6-8.6); Neutrophils % (auto) 67.6 % (37.0-80.0); Nucleated Red Blood Cells % 0.1 %; Red Blood Cells 4.37 10^6/uL (4.0-5.20); Red Cell Distribution Width 13.3 % (11.8-14.3); White Blood Cell 5.7 10^3/uL (4.4-10.8)
[2021-01-21] MEDS ORDERED: KETOROLAC TROMETH 30 MG/ML 1ML VIAL IV ONE (10:30)
[2021-01-21 10:33] LABS: INR 0.99 (0.9-1.15); Partial Thromboplastin Time 24.9 sec (23.6-33.0)
[2021-01-21 10:38] LABS: Albumin 3.5 g/dL (3.4-5.0); Anion Gap 7 (5-15); Blood Urea Nitrogen 14 mg/dL (7-18); Calcium 9.2 mg/dL (8.5-10.1); Carbon Dioxide 23 mmol/L (21-32); Chloride 112 mmol/L (98-107); Glucose 104 mg/dL (74-106); Lipase 166 U/L (73-393); Potassium 3.7 mmol/L (3.5-5.1); Sodium 142 mmol/L (136-145)
[2021-01-21 10:40] LABS: Albumin 3.5 g/dL (3.4-5.0); Anion Gap 6 (5-15); Blood Urea Nitrogen 14 mg/dL (7-18); Calcium 9.1 mg/dL (8.5-10.1); Carbon Dioxide 23 mmol/L (21-32); Chloride 112 mmol/L (98-107); Glucose 106 mg/dL (74-106); Magnesium 2.1 mg/dL (1.6-2.6); Potassium 3.7 mmol/L (3.5-5.1); Sodium 141 mmol/L (136-145)
[2021-01-21 10:45] LABS: Alanine Aminotransferase 25 U/L (13-56); Alkaline Phosphatase 76 U/L (45-117); Aspartate Aminotransferase 18 U/L (15-37); BUN/Creatinine Ratio 12.7; Bilirubin, Total 0.7 mg/dL (0.2-1.0); GFR African American 66 mL/min; GFR Non-African American 54 mL/min; Total Protein 7.1 g/dL (6.4-8.2)
[2021-01-21 10:47] LABS: Alanine Aminotransferase 26 U/L (13-56); Alkaline Phosphatase 80 U/L (45-117); Aspartate Aminotransferase 19 U/L (15-37); BUN/Creatinine Ratio 12.2; Bilirubin, Total 0.7 mg/dL (0.2-1.0); GFR African American 63 mL/min; GFR Non-African American 52 mL/min
[2021-01-21] MEDS ORDERED: TAMSULOSIN HYDROCHLORIDE 0.4 MG CAP PO ONE (11:15)
[2021-01-21] MEDS ORDERED: FUROSEMIDE 40 MG/4 ML VIAL IV ONE (11:15)
[2021-01-21 12:03] LABS: Urine Bacteria FEW /hpf (None Seen); Urine Blood 1+ /uL (Negative); Urine Specific Gravity 1.013 (1.001-1.035); Urine WBC 271 /hpf (0 - 5); Urine WBC Clumps PRESENT /hpf (None Seen)
[2021-01-21 12:04] LABS: Urine Hyaline Cast FEW /lpf (0 - 2); Urine Mucus FEW (None Seen)
[2021-01-21] MEDS ORDERED: cefTRIAXone 1GM/50ML D5W 50 ML IV ONE (12:15)
[2021-01-21] MEDS ORDERED: NITROGLYCERIN 0.4 MG SL TAB SL PRN (14:45)
[2021-01-21] MEDS: SODIUM CHLORIDE 0.9% 1,000 ML IV SCH (14:45)
[2021-01-21] MEDS ORDERED: ACETAMINOPHEN 500 MG TAB PO PRN (14:45)
[2021-01-21] MEDS ORDERED: MORPHINE SULFATE INJECTION 2 MG/ML SYRG IV PRN (14:45)
[2021-01-21] MEDS: MORPHINE SULFATE INJECTION 2 MG/ML SYRG IV PRN (18:06)
[2021-01-21] MEDS: ONDANSETRON HCL 4 MG/2 ML VIAL IV PRN (18:06)
[2021-01-21] MEDS: ATORVASTATIN 20 MG TAB PO SCH (23:00)
[2021-01-21] MEDS: CARVEDILOL 3.125 MG TAB PO SCH (23:00)
[2021-01-22] MEDS: SODIUM CHLORIDE 0.9% 1,000 ML IV SCH ×3 (02:13→12:00)
[2021-01-22] MEDS: MORPHINE SULFATE INJECTION 2 MG/ML SYRG IV PRN (02:21)
[2021-01-22 03:18] VITALS: BP 101/63
[2021-01-22] MEDS ORDERED: NITR0.4S29 SL (03:52)
[2021-01-22 05:27] VITALS: BP 95/58
[2021-01-22 06:03] LABS: Basophils # (auto) 0 10 ^3/uL (0-0.2); Basophils % (auto) 0.2 % (0.0-2.0); Eosinophils # (auto) 0 10 ^3/uL (0-0.8); Eosinophils % (auto) 0.3 % (0.0-7.0); Hematocrit 36.1 % (36.0-46.0); Hemoglobin 12.4 g/dL (12.2-16.2); Lymphocytes # (auto) 0.4 10 ^3/uL (0.4-5.4); Lymphocytes % (auto) 4.9 % (10.0-50.0); Mean Corpuscular Hemoglobin 31.7 pg (28.0-32.0); Mean Corpuscular Hgb Conc. 34.3 g/dL (32.0-36.0); Mean Corpuscular Volume 92.6 fL (80.0-100.0); Monocytes # (auto) 0.6 10 ^3/uL (0-1.3); Monocytes % (auto) 7.9 % (0.0-12.0); Neutrophils # (auto) 6.8 10 ^3/uL (1.6-8.6); Neutrophils % (auto) 86.7 % (37.0-80.0); Red Cell Distribution Width 12.8 % (11.8-14.3); White Blood Cell 7.8 10^3/uL (4.4-10.8)
[2021-01-22 06:15] LABS: Calcium 8.1 mg/dL (8.5-10.1); Potassium 3.3 mmol/L (3.5-5.1)
[2021-01-22 06:17] LABS: BUN/Creatinine Ratio 14.3
[2021-01-22 09:00] VITALS: BP 95/67
[2021-01-22] MEDS: ENALAPRIL MALEATE 2.5 MG TAB PO SCH (10:00)
[2021-01-22] MEDS: cefTRIAXone 1GM/50ML D5W 50 ML IV SCH (10:41)
[2021-01-22] MEDS: ASPirin-EC 81 mg tab PO SCH (10:41)
[2021-01-22] MEDS: CLOPIDOGREL BISULFATE 75 MG TAB PO SCH (10:41)
[2021-01-22] MEDS: CARVEDILOL 3.125 MG TAB PO SCH ×2 (10:53→22:00)
[2021-01-22] MEDS: HYDROcodone-ACET 5/325MG TAB PO PRN ×2 (11:05→20:29)
[2021-01-22] MEDS ORDERED: POTASSIUM CHL 20 Meq TABLET PO ONE (11:15)
[2021-01-22] MEDS: ONDANSETRON HCL 4 MG/2 ML VIAL IV PRN ×2 (11:30→20:29)
[2021-01-22 13:00] VITALS: BP 79/57
[2021-01-22 17:00] VITALS: BP 80/49
[2021-01-22] MEDS ORDERED: TAMSULOSIN HYDROCHLORIDE 0.4 MG CAP PO SCH (18:00)
[2021-01-22] MEDS ORDERED: MANNITOL FTV 25% 12.5 GM/50 ML 50 ML IV ONE ×2 (21:15)
[2021-01-22 21:56] VITALS: BP 92/61
[2021-01-22] MEDS: ATORVASTATIN 20 MG TAB PO SCH (22:51)
[2021-01-23] MEDS: SODIUM CHLORIDE 0.9% 1,000 ML IV SCH ×2 (00:38→13:55)
[2021-01-23 05:00] VITALS: BP 106/70
[2021-01-23 05:20] LABS: Basophils # (auto) 0 10 ^3/uL (0-0.2); Basophils % (auto) 0.4 % (0.0-2.0); Eosinophils # (auto) 0.1 10 ^3/uL (0-0.8); Eosinophils % (auto) 1.1 % (0.0-7.0); Hematocrit 35.4 % (36.0-46.0); Hemoglobin 11.9 g/dL (12.2-16.2); Lymphocytes # (auto) 0.5 10 ^3/uL (0.4-5.4); Lymphocytes % (auto) 8.8 % (10.0-50.0); Mean Corpuscular Hemoglobin 31.6 pg (28.0-32.0); Mean Corpuscular Hgb Conc. 33.7 g/dL (32.0-36.0); Mean Corpuscular Volume 93.9 fL (80.0-100.0); Monocytes # (auto) 0.6 10 ^3/uL (0-1.3); Monocytes % (auto) 9.4 % (0.0-12.0); Neutrophils # (auto) 4.9 10 ^3/uL (1.6-8.6); Neutrophils % (auto) 80.3 % (37.0-80.0); Nucleated Red Blood Cells % 0.1 %; Red Blood Cells 3.77 10^6/uL (4.0-5.20); Red Cell Distribution Width 13.2 % (11.8-14.3); White Blood Cell 6.1 10^3/uL (4.4-10.8)
[2021-01-23 05:33] LABS: BUN/Creatinine Ratio 14.9; Calcium 7.8 mg/dL (8.5-10.1); Potassium 3.5 mmol/L (3.5-5.1)
[2021-01-23 09:00] VITALS: BP 94/63
[2021-01-23] MEDS: cefTRIAXone 1GM/50ML D5W 50 ML IV SCH (09:23)
[2021-01-23] MEDS: CLOPIDOGREL BISULFATE 75 MG TAB PO SCH (09:24)
[2021-01-23] MEDS: ASPirin-EC 81 mg tab PO SCH (09:24)
[2021-01-23] MEDS: ENALAPRIL MALEATE 2.5 MG TAB PO SCH (09:26)
[2021-01-23] MEDS: HYDROcodone-ACET 5/325MG TAB PO PRN (09:29)
[2021-01-23] MEDS: ONDANSETRON HCL 4 MG/2 ML VIAL IV PRN (09:29)
[2021-01-23] MEDS: CARVEDILOL 3.125 MG TAB PO SCH (09:29)
[2021-01-23 13:00] VITALS: BP 95/64
[2021-01-23 13:41] VITALS: BP 95/64
[2021-01-23 16:42] VITALS: BP 93/63
== END 2021-01-23 17:45 | disposition home or self-care (01) | DRG 463 ==
LOC: ER 09:44 → TELE 14:44 → TELE-CENTR 23:41
PROVIDERS: ADMIT Nurse Practitioner Acute Care; ATTEND Internal Medicine
DX: N13.6 Pyonephrosis (principal); I11.0 Hypertensive heart disease with heart failure; I50.9 Heart failure, unspecified; E78.5 Hyperlipidemia, unspecified; I25.10 Atherosclerotic heart disease of native coronary artery without angina pectoris; I34.0 Nonrheumatic mitral (valve) insufficiency; F12.10 Cannabis abuse, uncomplicated; F17.210 Nicotine dependence, cigarettes, uncomplicated; K57.30 Diverticulosis of large intestine without perforation or abscess without bleeding; N26.1 Atrophy of kidney (terminal); S05.11XA Contusion of eyeball and orbital tissues, right eye, initial encounter; Z20.822 Contact with and (suspected) exposure to COVID-19; R91.1 Solitary pulmonary nodule; N20.0 Calculus of kidney; Z79.02 Long term (current) use of antithrombotics/antiplatelets; Z95.5 Presence of coronary angioplasty implant and graft; Z79.82 Long term (current) use of aspirin; Z79.899 Other long term (current) drug therapy; Z86.73 Personal history of transient ischemic attack (TIA), and cerebral infarction without residual deficits; Z88.5 Allergy status to narcotic agent; Z71.6 Tobacco abuse counseling
CPT/HCPCS: 36415; 70450; 70486; 71045; 74176; 80048; 80053; 81001; 83690; 83735; 84484; 85025; 85610; 85730; 87081; 87086; 87426; 93005; 96361; 96365; 96375; G0378; J0696; J1885; J2405

== ENCOUNTER 2021-06-07 09:22 | Inpatient (IN) | payer MEDICAID ==
[~2021-06-07] VITALS: Ht 152.4 cm; Wt 69.5 kg
[~2021-06-07 09:22] MED LIST changes: +NITR0.4S29 SL
[2021-06-07 10:18] LABS: Albumin 3.3 g/dL (3.4-5.0); Calcium 8.6 mg/dL (8.5-10.1); Potassium 4.2 mmol/L (3.5-5.1)
[2021-06-07 10:23] LABS: BUN/Creatinine Ratio 15.5; Bilirubin, Total 1.3 mg/dL (0.2-1.0); Total Protein 6.4 g/dL (6.4-8.2)
[2021-06-07 10:24] LABS: Urine Bacteria FEW /hpf (None Seen); Urine Blood TRACE /uL (Negative); Urine Specific Gravity 1.029 (1.001-1.035); Urine WBC 58 /hpf (0 - 5)
[2021-06-07 10:32] LABS: Basophils # (auto) 0 10 ^3/uL (0-0.2); Basophils % (auto) 0.4 % (0.0-2.0); Eosinophils # (auto) 0.3 10 ^3/uL (0-0.8); Eosinophils % (auto) 3.6 % (0.0-7.0); Hematocrit 40.4 % (36.0-46.0); Hemoglobin 13.1 g/dL (12.2-16.2); Lymphocytes # (auto) 0.9 10 ^3/uL (0.4-5.4); Lymphocytes % (auto) 11.6 % (10.0-50.0); Mean Corpuscular Hemoglobin 29.6 pg (28.0-32.0); Mean Corpuscular Hgb Conc. 32.4 g/dL (32.0-36.0); Mean Corpuscular Volume 91.2 fL (80.0-100.0); Monocytes # (auto) 0.7 10 ^3/uL (0-1.3); Monocytes % (auto) 9.4 % (0.0-12.0); Neutrophils # (auto) 5.6 10 ^3/uL (1.6-8.6); Red Blood Cells 4.43 10^6/uL (4.0-5.20); Red Cell Distribution Width 13.6 % (11.8-14.3); White Blood Cell 7.5 10^3/uL (4.4-10.8)
[2021-06-07] MEDS ORDERED: IOHEXOL 300 MG/ML 100ML BOTTLE IJ ONE (12:12)
[2021-06-07] MEDS ORDERED: MORPHINE SULFATE INJECTION 2 MG/ML SYRG IV ONE ×2 (12:15→15:00)
[2021-06-07] MEDS ORDERED: ONDANSETRON HCL 4 MG/2 ML VIAL IV ONE (15:00)
[2021-06-07] MEDS ORDERED: cefTRIAXone 1GM/50ML D5W 50 ML IV ONE ×2 (15:30→15:45)
[2021-06-07] MEDS ORDERED: KETOROLAC TROMETH 30 MG/ML 1ML VIAL IV PRN (16:30)
[2021-06-07] MEDS ORDERED: HYDROmorphone HCL 2 MG/ML VL IV PRN (16:30)
[2021-06-07] MEDS ORDERED: NITROGLYCERIN 0.4 MG SL TAB SL PRN (17:00)
[2021-06-07] MEDS: SODIUM CHLORIDE 0.9% 1,000 ML IV SCH ×2 (17:34→18:34)
[2021-06-07] MEDS: ONDANSETRON HCL 4 MG/2 ML VIAL IV PRN (18:07)
[2021-06-07] MEDS: MORPHINE SULFATE INJECTION 2 MG/ML SYRG IV PRN ×2 (18:07→23:48)
[2021-06-07] MEDS: HYDROcodone-ACET 5/325MG TAB PO PRN (20:44)
[2021-06-07 23:33] VITALS: BP 148/85
[2021-06-08] MEDS: MORPHINE SULFATE INJECTION 2 MG/ML SYRG IV PRN ×5 (04:26→20:30)
[2021-06-08] MEDS: SODIUM CHLORIDE 0.9% 1,000 ML IV SCH ×2 (04:34→18:04)
[2021-06-08 05:03] VITALS: BP 106/88
[2021-06-08 06:10] LABS: Basophils # (auto) 0.2 10 ^3/uL (0-0.2); Basophils % (auto) 1.7 % (0.0-2.0); Eosinophils # (auto) 0 10 ^3/uL (0-0.8); Eosinophils % (auto) 0.1 % (0.0-7.0); Hematocrit 39.6 % (36.0-46.0); Lymphocytes # (auto) 0.5 10 ^3/uL (0.4-5.4); Lymphocytes % (auto) 3.6 % (10.0-50.0); Mean Corpuscular Hgb Conc. 32.8 g/dL (32.0-36.0); Mean Corpuscular Volume 91.5 fL (80.0-100.0); Monocytes # (auto) 1.3 10 ^3/uL (0-1.3); Monocytes % (auto) 9.1 % (0.0-12.0); Neutrophils # (auto) 12.6 10 ^3/uL (1.6-8.6); Neutrophils % (auto) 85.5 % (37.0-80.0); Nucleated Red Blood Cells % 0.1 %; Red Blood Cells 4.33 10^6/uL (4.0-5.20); Red Cell Distribution Width 13.3 % (11.8-14.3); White Blood Cell 14.7 10^3/uL (4.4-10.8)
[2021-06-08 06:57] LABS: Albumin 2.7 g/dL (3.4-5.0); BUN/Creatinine Ratio 12.3; Calcium 7.9 mg/dL (8.5-10.1)
[2021-06-08 07:00] LABS: Bilirubin, Total 1.3 mg/dL (0.2-1.0); Total Protein 5.9 g/dL (6.4-8.2)
[2021-06-08 09:00] VITALS: BP 95/65
[2021-06-08] MEDS: cefTRIAXone 1GM/50ML D5W 50 ML IV SCH (09:00)
[2021-06-08] MEDS: ENOXAPARIN SOD 40 MG/0.4 ML SYRINGE SC SCH (10:00)
[2021-06-08] MEDS ORDERED: CARVEDILOL 3.125 MG TAB PO SCH (10:00)
[2021-06-08 13:00] VITALS: BP 89/56
[2021-06-08] MEDS ORDERED: TAMSULOSIN HYDROCHLORIDE 0.4 MG CAP PO ONE (14:00)
[2021-06-08] MEDS ORDERED: IBUPROFEN 600 MG TAB PO ONE (14:00)
[2021-06-08 17:00] VITALS: BP 105/64
[2021-06-08] MEDS ORDERED: TAMSULOSIN HYDROCHLORIDE 0.4 MG CAP PO SCH (18:00)
[2021-06-08] MEDS: TAMSULOSIN HYDROCHLORIDE 0.4 MG CAP PO SCH (18:00)
[2021-06-08 22:00] VITALS: BP 105/65
[2021-06-09] MEDS: MORPHINE SULFATE INJECTION 2 MG/ML SYRG IV PRN ×5 (01:14→18:45)
[2021-06-09] MEDS: SODIUM CHLORIDE 0.9% 1,000 ML IV SCH ×3 (01:54→20:35)
[2021-06-09 05:00] VITALS: BP 101/58
[2021-06-09 06:25] LABS: Basophils # (auto) 0 10 ^3/uL (0-0.2); Basophils % (auto) 0.4 % (0.0-2.0); Eosinophils # (auto) 0.1 10 ^3/uL (0-0.8); Eosinophils % (auto) 0.7 % (0.0-7.0); Hematocrit 37.8 % (36.0-46.0); Hemoglobin 12.2 g/dL (12.2-16.2); Lymphocytes # (auto) 0.6 10 ^3/uL (0.4-5.4); Lymphocytes % (auto) 8.1 % (10.0-50.0); Mean Corpuscular Hemoglobin 29.7 pg (28.0-32.0); Mean Corpuscular Hgb Conc. 32.4 g/dL (32.0-36.0); Mean Corpuscular Volume 91.9 fL (80.0-100.0); Monocytes # (auto) 0.7 10 ^3/uL (0-1.3); Neutrophils # (auto) 6.1 10 ^3/uL (1.6-8.6); Neutrophils % (auto) 81.8 % (37.0-80.0); Nucleated Red Blood Cells % 0.1 %; Red Blood Cells 4.12 10^6/uL (4.0-5.20); Red Cell Distribution Width 13.4 % (11.8-14.3); White Blood Cell 7.5 10^3/uL (4.4-10.8)
[2021-06-09 06:46] LABS: Calcium 8.4 mg/dL (8.5-10.1); Potassium 3.8 mmol/L (3.5-5.1)
[2021-06-09 06:48] LABS: BUN/Creatinine Ratio 14.1
[2021-06-09 09:00] VITALS: BP 102/57
[2021-06-09] MEDS: cefTRIAXone 1GM/50ML D5W 50 ML IV SCH (09:00)
[2021-06-09] MEDS: ENOXAPARIN SOD 40 MG/0.4 ML SYRINGE SC SCH (10:00)
[2021-06-09 13:00] VITALS: BP 108/72
[2021-06-09 17:00] VITALS: BP 107/70
[2021-06-09] MEDS: TAMSULOSIN HYDROCHLORIDE 0.4 MG CAP PO SCH (18:00)
[2021-06-09] MEDS ORDERED: VANCOMYCIN 1GM/250ML 250 ML IV ONE (19:15)
[2021-06-09 22:00] VITALS: BP 93/53
[2021-06-09] MEDS: HYDROcodone-ACET 5/325MG TAB PO PRN (22:34)
[2021-06-09] MEDS ORDERED: LACTULOSE 20Gm/30ML SOLN PO ONE (22:45)
[2021-06-10] VITALS (9 sets, daily range): BP systolic 107–150; BP diastolic 68–94
[2021-06-10] MEDS: MORPHINE SULFATE INJECTION 2 MG/ML SYRG IV PRN ×2 (02:15→15:37)
[2021-06-10] MEDS: SODIUM CHLORIDE 0.9% 1,000 ML IV SCH ×2 (02:50→18:46)
[2021-06-10] MEDS: ONDANSETRON HCL 4 MG/2 ML VIAL IV PRN (03:30)
[2021-06-10] MEDS: LACTULOSE 20Gm/30ML SOLN PO SCH ×3 (09:18→18:43)
[2021-06-10] MEDS: cefTRIAXone 1GM/50ML D5W 50 ML IV SCH (09:18)
[2021-06-10] MEDS: ENOXAPARIN SOD 40 MG/0.4 ML SYRINGE SC SCH (09:18)
[2021-06-10] MEDS: HYDROcodone-ACET 5/325MG TAB PO PRN ×2 (09:19→18:45)
[2021-06-10 10:19] LABS: INR 0.94 (0.9-1.15); Partial Thromboplastin Time 27.8 sec (23.6-33.0)
[2021-06-10] MEDS ORDERED: LIDOCAINE 2%HCL (LOCAL ANESTH.) INJ 20ML MDV ONE (11:39)
[2021-06-10] MEDS ORDERED: fentaNYL CITRATE 5 ML ONE (11:54)
[2021-06-10] MEDS ORDERED: IODIXANOL 320MG/ML 100ML BTL IV ONE (11:54)
[2021-06-10] MEDS ORDERED: MIDAZOLAM HCL 2MG/2ML 2ml VIAL (1mg/ml) ONE (11:55)
[2021-06-10] MEDS ORDERED: VANCOMYCIN PER PHARMACY 0 MG IV SCH (17:00)
[2021-06-10] MEDS: TAMSULOSIN HYDROCHLORIDE 0.4 MG CAP PO SCH (18:43)
[2021-06-10] MEDS ORDERED: VANCOMYCIN 1GM/250ML 250 ML IV ONE (18:45)
[2021-06-10] MEDS: ATORVASTATIN 20 MG TAB PO SCH (22:49)
[2021-06-10] MEDS: METOPROLOL TARTRATE 25 MG TAB PO SCH (22:50)
[2021-06-11] MEDS: MORPHINE SULFATE INJECTION 2 MG/ML SYRG IV PRN ×5 (01:18→15:25)
[2021-06-11] MEDS: LACTULOSE 20Gm/30ML SOLN PO SCH ×4 (01:19→18:00)
[2021-06-11 05:00] VITALS: BP 124/77
[2021-06-11] MEDS: SODIUM CHLORIDE 0.9% 1,000 ML IV SCH (05:54)
[2021-06-11] MEDS: HYDROcodone-ACET 5/325MG TAB PO PRN (06:00)
[2021-06-11 06:37] LABS: Basophils # (auto) 0 10 ^3/uL (0-0.2); Basophils % (auto) 0.6 % (0.0-2.0); Eosinophils # (auto) 0.2 10 ^3/uL (0-0.8); Eosinophils % (auto) 3.6 % (0.0-7.0); Hematocrit 37.6 % (36.0-46.0); Hemoglobin 12.1 g/dL (12.2-16.2); Lymphocytes # (auto) 0.8 10 ^3/uL (0.4-5.4); Lymphocytes % (auto) 14.7 % (10.0-50.0); Mean Corpuscular Hemoglobin 29.6 pg (28.0-32.0); Mean Corpuscular Hgb Conc. 32.2 g/dL (32.0-36.0); Mean Corpuscular Volume 92.1 fL (80.0-100.0); Monocytes # (auto) 0.8 10 ^3/uL (0-1.3); Neutrophils # (auto) 3.6 10 ^3/uL (1.6-8.6); Neutrophils % (auto) 67.1 % (37.0-80.0); Nucleated Red Blood Cells % 0.2 %; Red Blood Cells 4.08 10^6/uL (4.0-5.20); Red Cell Distribution Width 13.4 % (11.8-14.3); White Blood Cell 5.4 10^3/uL (4.4-10.8)
[2021-06-11 06:55] LABS: Calcium 8.5 mg/dL (8.5-10.1); Potassium 3.9 mmol/L (3.5-5.1)
[2021-06-11 06:59] LABS: BUN/Creatinine Ratio 9.1
[2021-06-11 08:00] VITALS: BP 112/68
[2021-06-11] MEDS ORDERED: VANCOMYCIN 750mg/250ml 250 ML IV SCH (09:00)
[2021-06-11] MEDS: cefTRIAXone 1GM/50ML D5W 50 ML IV SCH (09:53)
[2021-06-11] MEDS: ENOXAPARIN SOD 40 MG/0.4 ML SYRINGE SC SCH (09:54)
[2021-06-11] MEDS: METOPROLOL TARTRATE 25 MG TAB PO SCH (09:54)
[2021-06-11] MEDS ORDERED: SODIUM CHLORIDE 0.9% 1,000 ML IV SCH (11:15)
[2021-06-11 12:00] VITALS: BP 116/76
[2021-06-11] MEDS: VANCOMYCIN 750mg/250ml 250 ML IV SCH (12:00)
[2021-06-11 16:00] VITALS: BP 160/94
[2021-06-11] MEDS ORDERED: ISOS1TAB28 PO (18:54)
[2021-06-11] MEDS ORDERED: METO25TA93 PO (18:54)
[2021-06-11] MEDS ORDERED: CHOL500024 OR (18:54)
[2021-06-11] MEDS: TAMSULOSIN HYDROCHLORIDE 0.4 MG CAP PO SCH (18:56)
[2021-06-11] MEDS ORDERED: LIDOCAINE 1% (LOCAL ANESTH.) PF 5ml SDV ID ONE (19:15)
[2021-06-11 22:00] VITALS: BP 143/83
[2021-06-12] MEDS: ATORVASTATIN 20 MG TAB PO SCH (00:01)
[2021-06-12] MEDS: VANCOMYCIN 750mg/250ml 250 ML IV SCH ×2 (00:26→12:30)
[2021-06-12] MEDS: SODIUM CHLOR 0.9% PF (SALINE LOCK) 10ML VIAL/SYR IV SCH ×2 (00:28→10:13)
[2021-06-12 05:00] VITALS: BP 144/82
[2021-06-12 09:00] VITALS: BP 145/89
[2021-06-12] MEDS: cefTRIAXone 1GM/50ML D5W 50 ML IV SCH (10:13)
[2021-06-12] MEDS: ENOXAPARIN SOD 40 MG/0.4 ML SYRINGE SC SCH (10:13)
[2021-06-12 10:35] LABS: Potassium 3.5 mmol/L (3.5-5.1)
[2021-06-12 10:45] LABS: BUN/Creatinine Ratio 7.3; Calcium 8.3 mg/dL (8.5-10.1)
[2021-06-12] MEDS: LACTULOSE 20Gm/30ML SOLN PO SCH ×3 (12:00→18:00)
[2021-06-12] MEDS: HYDROcodone-ACET 5/325MG TAB PO PRN ×2 (12:20)
[2021-06-12 13:00] VITALS: BP 150/89
[2021-06-12 16:14] VITALS: BP 150/89
[2021-06-12 17:00] VITALS: BP 158/86
[2021-06-12] MEDS: TAMSULOSIN HYDROCHLORIDE 0.4 MG CAP PO SCH (18:20)
== END 2021-06-12 19:02 | disposition home health service (06) | DRG 720 ==
LOC: ER 09:25 → OVERFLOW 17:00 → WEST WING 17:38
PROVIDERS: ADMIT Internal Medicine; ATTEND Internal Medicine
PROC: 0T9130Z Drainage of Left Kidney with Drainage Device, Percutaneous Approach (ICD-10-PCS; principal; 2021-06-10)
PROC: BT1FYZZ Fluoroscopy of Left Kidney, Ureter and Bladder using Other Contrast (ICD-10-PCS; 2021-06-10)
PROC: BT42ZZZ Ultrasonography of Left Kidney (ICD-10-PCS; 2021-06-10)
PROC: 05HB33Z Insertion of Infusion Device into Right Basilic Vein, Percutaneous Approach (ICD-10-PCS; 2021-06-11)
PROC: B54MZZA Ultrasonography of Right Upper Extremity Veins, Guidance (ICD-10-PCS; 2021-06-11)
DX: A41.02 Sepsis due to Methicillin resistant Staphylococcus aureus (principal); N17.9 Acute kidney failure, unspecified; E88.09 Other disorders of plasma-protein metabolism, not elsewhere classified; I50.42 Chronic combined systolic (congestive) and diastolic (congestive) heart failure; I11.0 Hypertensive heart disease with heart failure; N13.6 Pyonephrosis; I25.10 Atherosclerotic heart disease of native coronary artery without angina pectoris; E78.5 Hyperlipidemia, unspecified; Z20.822 Contact with and (suspected) exposure to COVID-19; R74.8 Abnormal levels of other serum enzymes; F17.210 Nicotine dependence, cigarettes, uncomplicated; I25.2 Old myocardial infarction; Z79.02 Long term (current) use of antithrombotics/antiplatelets; Z79.82 Long term (current) use of aspirin; Z87.442 Personal history of urinary calculi; Z93.6 Other artificial openings of urinary tract status; Z88.5 Allergy status to narcotic agent
CPT/HCPCS: 36415; 36569; 50432; 71045; 74177; 74425; 76705; 76775; 76942; 80048; 80053; 81001; 82150; 83690; 84484; 85025; 85610; 85730; 87040; 87077; 87086; 87088; 87186; 87426; 93005; 93306; 96365; 96375; 96376; 99152; C1729; G0378; J0696; J2250; J2405; Q9967